=== PATIENT | male | born 1975 | race Caucasian/White ===

== ENCOUNTER → 2019-01-11 | Outpatient (CLI) | payer BC ==
[~2019-01-11] MED LIST: ATEN25TA PO; CYCL-259 PO; DIAZ2TAB PO; DOCU-131 PO; IBUP-11 PO; LISD30CA5 PO; OXYC-307 PO; TIZA4CAP PO
== END | disposition home or self-care (01) ==
LOC: CVU 07:59
PROVIDERS: ATTEND Internal Medicine Cardiovascular Disease
DX: I10 Essential (primary) hypertension (principal); E78.5 Hyperlipidemia, unspecified; Z87.891 Personal history of nicotine dependence
CPT/HCPCS: 93306